=== PATIENT | male | born 1990 | race Caucasian/White ===

== ENCOUNTER 2023-01-29 13:26 | Emergency (ER) | payer MEDICAID ==
[~2023-01-29] VITALS: Ht 180.3 cm; Wt 74.4 kg
[2023-01-29 14:18] VITALS: BP 125/56; PULSE 76; RESP 18; TEMP 97.2; O2SAT 97
[2023-01-29] MEDS ORDERED: FLUORESCEIN SOD OPTH TEST STRIP OP ONE (14:30)
[2023-01-29] MEDS ORDERED: TETRACAINE HCL 0.5% OPTH(EYE) SOLN 4ML RIGHTEYE ONE (14:30)
[2023-01-29] MEDS ORDERED: TOBRSUS35 RIGHTEYE (14:42)
== END 2023-01-29 14:51 | disposition home or self-care (01) ==
LOC: ER 13:26
DX: T15.01XA Foreign body in cornea, right eye, initial encounter (principal); Z79.2 Long term (current) use of antibiotics; X58.XXXA Exposure to other specified factors, initial encounter; Y93.89 Activity, other specified; Y92.89 Other specified places as the place of occurrence of the external cause; Y99.8 Other external cause status
CPT/HCPCS: 65222